=== PATIENT | female | born 1985 | race African-American/Black ===

== ENCOUNTER 2021-10-27 23:36 | Emergency (ER) | payer OTHER ==
[2021-10-28 00:19] VITALS: TEMP 98.8; BMI 31.1
[2021-10-28] MEDS ORDERED: SODIUM CHLORIDE 0.9% 500 ML INFUS.BAG IV ONE (01:12)
[2021-10-28] MEDS ORDERED: ACETAMINOPHEN 1000 MG/100 ML BAG IVPB ONE (01:12)
[2021-10-28] MEDS ORDERED: ACETAMINOPHEN INJECTION 100 ML IVPB ONE (01:18)
[2021-10-28 01:51] LABS: BASO % 0.3 % (0-2.0); EOS % 0.4 % (0-4.5); HEMATOCRIT 39.9 % (32.4-45.2); HEMOGLOBIN 13.2 GM/dL (10.7-15.3); LYMPH % 14.9 % (8-40); MCH 26.8 pg (25.7-33.7); MCHC 33.1 g/dl (32.0-36.0); MEAN PLT VOLUME 8.1 fl (7.5-11.1); MONO % 10.5 % (3.8-10.2); NEUT % 73.9 % (42.8-82.8); PLATELET COUNT 203 10^3/uL (134-434); RBC 4.93 M/mm3 (3.60-5.2); RDW 15.1 % (11.6-15.6); WHITE BLOOD COUNT 4.4 K/mm3 (4.0-10.0)
[2021-10-28 02:10] LABS: CHLORIDE 106 mmol/L (98-107); SODIUM 136 mmol/L (136-145)
[2021-10-28 02:13] LABS: GLUCOSE,RANDOM 96 mg/dL (74-106); LIPASE 97 U/L (73-393)
[2021-10-28 02:14] LABS: ALBUMIN 3.8 g/dl (3.4-5.0); ANION GAP 6 MMOL/L (8-16); BLOOD UREA NITROGEN 7.8 mg/dL (7-18); CO2 24 mmol/L (21-32); MAGNESIUM 2.2 mg/dL (1.8-2.4)
[2021-10-28 02:16] LABS: CREATININE 0.8 mg/dL (0.55-1.3); SGOT/AST 31 U/L (15-37)
[2021-10-28 02:17] LABS: SGPT/ALT 28 U/L (13-61)
[2021-10-28 02:18] LABS: BILIRUBIN,TOTAL 0.5 mg/dL (0.2-1); TOT PROT 6.8 g/dl (6.4-8.2)
[2021-10-28 02:19] LABS: ALK PHOS 54 U/L (45-117)
[2021-10-28 02:46] LABS: EPI CELLS 7 /uL (0-25.1); HYALINE CASTS 0 /uL (0-3.1); URINE APPEARANCE CLOUDY; URINE BACTERIA 159 /uL (0-1359); URINE BILIRUBIN NEGATIVE (NEGATIVE); URINE COLOR YELLOW; URINE GLUCOSE (UA) NEGATIVE (NEGATIVE); URINE KETONE 2+ (NEGATIVE); URINE LEUK ESTERASE 2+ (NEGATIVE); URINE NITRITE NEGATIVE (NEGATIVE); URINE PROTEIN TRACE (NEGATIVE); URINE RBC 3743 /uL (0-23.9); URINE WBC 1119 /uL (0-25.8)
[2021-10-28 05:59] VITALS: BP 141/70; PULSE 80
== END 2021-10-28 05:59 | disposition home or self-care (01) ==
LOC: JER 23:36
PROC: 3E033GC Introduction of Other Therapeutic Substance into Peripheral Vein, Percutaneous Approach (ICD-10-PCS; principal; 2021-10-27)
DX: N12 Tubulo-interstitial nephritis, not specified as acute or chronic (principal)
CPT/HCPCS: 36415; 71045-TC-FY; 74176-TC; 76830-TC; 80053; 81003; 83690; 83735; 84702; 85025; 87086; 93005; 93010; 99285-25

== ENCOUNTER 2023-04-21 17:26 | Emergency (ER) | payer OTHER ==
[2023-04-21 17:45] VITALS: RESP 16; BMI 31.7
[2023-04-21 20:18] LABS: VENOUS BASE EXCESS -0.1 mmol/L (-2-2); VENOUS O2 SATURATION 31.4 % (70-80); VENOUS PCO2 47.4 mmHg (38-52); VENOUS PH 7.356 (7.310-7.410)
[2023-04-21 20:26] LABS: PH,URINE 5.5 (5.0-8.0); URINE APPEARANCE CLEAR; URINE BILIRUBIN NEGATIVE (NEGATIVE); URINE COLOR YELLOW; URINE GLUCOSE (UA) NEGATIVE (NEGATIVE); URINE KETONE 2+ (NEGATIVE); URINE LEUK ESTERASE NEGATIVE (NEGATIVE); URINE NITRITE NEGATIVE (NEGATIVE); URINE PROTEIN NEGATIVE (NEGATIVE)
[2023-04-21 20:32] LABS: OPIATES, URI NEGATIVE (NEGATIVE); URINE BARBITURATES NEGATIVE (NEGATIVE)
[2023-04-21 20:33] LABS: COCAINE, UR NEGATIVE (NEGATIVE)
[2023-04-21] MEDS ORDERED: SODIUM CHLORIDE 0.9% 500 ML INFUS.BAG IV ONE (20:33)
[2023-04-21 20:36] LABS: METHADONE, UR NEGATIVE (NEGATIVE); PHENCYCLIDINE,URINE NEGATIVE (NEGATIVE); URINE AMPHETAMINES POSITIVE (NEGATIVE); URINE BENZODIAZEPINES NEGATIVE (NEGATIVE)
[2023-04-21 20:37] LABS: CHLORIDE 106 mmol/L (98-107); POTASSIUM 3.8 mmol/L (3.5-5.1); SODIUM 141 mmol/L (136-145)
[2023-04-21 20:39] LABS: ALBUMIN 4.2 g/dl (3.4-5.0); ANION GAP 9 MMOL/L (8-16); CALCIUM 8.8 mg/dL (8.5-10.1); CO2 25 mmol/L (21-32)
[2023-04-21 20:40] LABS: BLOOD UREA NITROGEN 12.1 mg/dL (7-18); GLUCOSE,RANDOM 110 mg/dL (74-106)
[2023-04-21 20:41] LABS: BASO % 0.4 % (0-2.0); EOS % 0.7 % (0-4.5); HEMATOCRIT 39.7 % (32.4-45.2); HEMOGLOBIN 12.8 GM/dL (10.7-15.3); LYMPH % 36.9 % (8-40); MCH 26.1 pg (25.7-33.7); MCHC 32.2 g/dl (32.0-36.0); MEAN CELL VOLUME 81.1 fl (80-96); MEAN PLT VOLUME 8.3 fl (7.5-11.1); MONO % 7.9 % (3.8-10.2); NEUT % 54.1 % (42.8-82.8); PLATELET COUNT 241 10^3/uL (134-434); RDW 14.7 % (11.6-15.6); WHITE BLOOD COUNT 5.7 K/mm3 (4.0-10.0)
[2023-04-21 20:42] LABS: CREATININE 0.9 mg/dL (0.55-1.3)
[2023-04-21 20:43] LABS: SGOT/AST 23 U/L (15-37); SGPT/ALT 27 U/L (13-61)
[2023-04-21 20:44] LABS: BILIRUBIN,TOTAL 0.4 mg/dL (0.2-1)
[2023-04-21 20:45] LABS: ALK PHOS 60 U/L (45-117)
[2023-04-22 08:28] VITALS: TEMP 98.4
[2023-04-22 18:43] VITALS: BP 122/60; PULSE 63
== END 2023-04-22 19:46 | disposition home or self-care (01) ==
LOC: JER 17:26
DX: F32.A Depression, unspecified (principal); F15.10 Other stimulant abuse, uncomplicated; Z04.6 Encounter for general psychiatric examination, requested by authority
CPT/HCPCS: 36415; 80053; 80307; 81003; 82803; 84443; 84703; 85025; 87086; 93005; 93010; 99285-25